=== PATIENT | female | born 1975 | race Caucasian/White ===

== ENCOUNTER 2016-08-06 12:45 | Emergency (ER) | payer SELFPAY ==
[2016-08-06] MEDS ORDERED: OXYCODONE-ACETAMINOPHEN 5-325 MG TABLET PO ONE (13:14)
--- NOTE | 2016-08-06 13:16 | ER Document Report ---
ED Medical Screen (RME) - General Stated Complaint: FALL ANKLE PAIN Time seen by provider: 13:11 Mode of Arrival: Wheelchair Information source: Patient Notes: I have greeted and performed a rapid initial assessment of this patient. A comprehensive ED assessment and evaluation of the patient, analysis of test results and completion of the medical decision making process will be conducted by additional ED providers. TRAVEL OUTSIDE OF THE [place] IN LAST 30 DAYS: No - HPI Patient complains to provider of: INJURY TO LEFT ANKLE Onset: This morning Onset/Duration: Sudden Context: PT STATES SHE FELL INJURING ANKLE Quality of pain: Throbbing Severity: Severe Pain Level: 5 Associated Symptoms: None Exacerbated by: Movement Relieved by: Denies Similar symptoms previously: No Recently seen / treated by doctor: No - Related Data Smoking: Non-smoker Frequency of alcohol use: None Drug Abuse: None Allergies/Adverse Reactions: sulfamethoxazole [From Septra DS] Allergy (Intermediate, Verified 08/06/16 13:12 ) trimethoprim [From Septra DS] Allergy (Intermediate, Verified 08/06/16 13:12) Past Medical History Renal/ Medical History: Reports: Hx Kidney Stones Psychiatric Medical History: Reports: Hx Depression Past Surgical History: Reports: Hx Appendectomy, Hx Tonsillectomy - Immunizations Hx Diphtheria, Pertussis, Tetanus Vaccination: No
--- NOTE | 2016-08-06 15:32 | ER Document Report ---
ED General - General Chief Complaint: Ankle Injury Stated Complaint: FALL ANKLE PAIN Mode of Arrival: Wheelchair Information source: Patient Notes: Patient is a 40 yo female who presents with right ankle pain and swelling after she tripped over her dog at home and fell on her ankle. Describes the pain as throbbing and rated at a 5 out of 5. Denies head injury or LOC. State she has been unable to bear weight on that ankle. She was given percocet here in triage which is providing minimal relief. Otherwise feeling well. TRAVEL OUTSIDE OF THE [place] IN LAST 30 DAYS: No - Related Data Allergies/Adverse Reactions: sulfamethoxazole [From Septra DS] Allergy (Intermediate, Verified 08/06/16 13:12 ) trimethoprim [From Septra DS] Allergy (Intermediate, Verified 08/06/16 13:12) Past Medical History - General Information source: Patient - Social History Smoking Status: Current Every Day Smoker Chew tobacco use (# tins/day): No Frequency of alcohol use: None Drug Abuse: None Family History: Reviewed & Not Pertinent Patient has suicidal ideation: No Patient has homicidal ideation: No Renal/ Medical History: Reports: Hx Kidney Stones. Denies: Hx Peritoneal Dialysis Psychiatric Medical History: Reports: Hx Depression Past Surgical History: Reports: Hx Appendectomy, Hx Tonsillectomy - Immunizations Hx Diphtheria, Pertussis, Tetanus Vaccination: No Review of Systems - Review of Systems Constitutional: See HPI EENT: No symptoms reported Cardiovascular: No symptoms reported Respiratory: No symptoms reported Gastrointestinal: No symptoms reported Genitourinary: No symptoms reported Female Genitourinary: No symptoms reported Musculoskeletal: See HPI Skin: No symptoms reported Hematologic/Lymphatic: No symptoms reported Neurological/Psychological: No symptoms reported Physical Exam - Vital signs Vitals: Temp Pulse Resp BP Pulse Ox 98.1 F 91 16 118/77 99 08/06/16 13:13 08/06/16 13:13 08/06/16 13:13 08/06/16 13:13 08/06/16 13:13 Interpretation: Normal - Notes Notes: PHYSICAL EXAM: CONSTITUTIONAL: Alert and oriented, well-appearing and in no acute distress. Appears uncomfortable. HENT: Normocephalic, atraumatic. Moist mucous membranes. EYES: Pupils equal round and reactive to light, EOM intact. Sclera anicteric, conjunctiva are normal. No entrapment. HEART: Regular rate and rhythm without murmurs. LUNGS: CTAB and equal. No wheezes, rales or rhonchi. EXTREMITIES: Left ankle - tender to palpation along distal fibula and lateral malleolus with obvious effusion to same area. No palpable deformities. Distal pulses intact. ROM limited of ankle secondary to pain and swelling. Otherwise Normal range of motion, no pitting edema. No cyanosis. Cap Refill <3 seconds. NEURO: Cranial nerves grossly intact. Normal sensory/motor exams. PSYCH: Normal mood, normal affect. SKIN: Warm and dry. Normal turgor. No rashes or lesions noted. Course - Re-evaluation Re-evalutation: 08/06/16 15:28 Patient seen and examined. Left ankle effusion noted without obvious deformity. Reviewed xray - spiral fracture noted to distal fibula nondisplaced with joint effusion. Discussed case and consulted with Dr. Lees, ortho on-call who agreed with posterior OCL splint, pain medication and outpatient follow-up. Discussed with patient who verbally agrees. PCT applied posterior splint, neurovascular intact post splint. Given crutches. Discharged home in stable condition with script for pain medication. Follow-up as directed. - Vital Signs Vital signs: Temp Pulse Resp BP Pulse Ox 98.1 F 91 16 118/77 99 08/06/16 13:13 08/06/16 13:13 08/06/16 13:13 08/06/16 13:13 08/06/16 13:13 Procedures - Immobilization Left Posterior Ankle Pre-Proc Neuro Vasc Exam: Normal Immobilizer type: Short Leg Posterior Performed by: PCT Post-Proc Neuro Vasc Exam: Normal Alignment checked and good: Yes Discharge - Discharge Clinical Impression: Effusion of ankle joint, left Spiral fracture of shaft of fibula Qualifiers: Encounter type: initial encounter Fracture type: closed Fracture alignment: nondisplaced Laterality: left Qualified Code(s): S82.445A - Nondisplaced spiral fracture of shaft of left fibula, initial encounter for closed fracture Condition: Stable Disposition: HOME, SELF-CARE Additional Instructions: Fracture You have a fracture. The typical broken bone requires only protection and sufficient time for healing. "Setting" is necessary only if the bones are crooked or out of position. The physician will re-assess you periodically to make certain that the bone heals without complications. It's important that you follow the instructions given you. The initial treatment is immobilization, elevation of the injury, and cold packs. Not all fractures require a cast. Depending on the location and type of fracture, immobilization may consist of a splint, cast, sling, bulky dressing , or simply rest. The length of time required for healing depends on the location and type of fracture, and on the age of the patient. The treatment plan the physician has outlined for you is customized to your fracture and health condition. Call the doctor or return at once if pain becomes severe, or if severe swelling or numbness develop. Oral Narcotic Medication You have been given a prescription for pain control. This medication is a narcotic. It's best taken with food, as nausea can result if taken on an empty stomach. Don't operate machinery or drive within six hours of taking this medication. Do not combine this medicine with alcohol, or with any medication which can cause sedation (such as cold tablets or sleeping pills) unless you get permission from the physician. Narcotics tend to cause constipation. If possible, drink plenty of fluids and eat a diet high in fiber and fruits. Splint Pending Casting Your injury can't be casted until the swelling has subsided. Therefore, a temporary splint has been placed to protect the injury. Full use of an injured area is not possible in a splint. You should follow the doctor's instructions concerning rest, ice, and elevation of the injury. Never do anything which causes pain under the splint. Keep the splint on ALL THE TIME until you return for casting. If there is unexpected severe pain, or numbness, discoloration, or swelling beyond the splint, you should return at once. Follow-Up Care Although no definite follow-up visit has been scheduled for you, you should return if there is unexpected worsening or a significant change in your symptoms. Prescriptions: Oxycodone HCl [Oxycodone HCl 10 MG Tablet] 1 - 2 tab PO Q6H PRN #15 tablet PRN Reason: PAIN Referrals: KAMILA HANSON MD [ACTIVE STAFF] - Follow up tomorrow (Call today for follow-up appointment)
[2016-08-06 16:36] VITALS: BP 144/86
== END 2016-08-06 16:35 | disposition home or self-care (01) ==
LOC: ER 12:45
PROC: 2W3RX1Z Immobilization of Left Lower Leg using Splint (ICD-10-PCS; principal; 2016-08-06)
DX: S82.445A Nondisplaced spiral fracture of shaft of left fibula, initial encounter for closed fracture (principal); W01.0XXA Fall on same level from slipping, tripping and stumbling without subsequent striking against object, initial encounter; Y92.009 Unspecified place in unspecified non-institutional (private) residence as the place of occurrence of the external cause; F17.200 Nicotine dependence, unspecified, uncomplicated; Z88.1 Allergy status to other antibiotic agents
CPT/HCPCS: 99283

== ENCOUNTER 2016-08-29 06:46 | Inpatient (IN) | payer SELFPAY ==
[2016-08-29 08:23] LABS: ABSOLUTE BASOPHILS # (AUTO) 0.1 10^3/uL (0.0-0.2); ABSOLUTE EOSINOPHILS # (AUTO) 0.2 10^3/uL (0.0-0.6); ABSOLUTE LYMPHOCYTES (AUTO) 2.2 10^3/uL (0.5-4.7); ABSOLUTE NEUT (AUTO) 12.7 10^3/uL (1.7-8.2); BASOPHILS % (AUTO) 0.4 % (0-2); EOSINOPHILS % (AUTO) 1.2 % (0-6); HEMATOCRIT 32.9 % (36.0-47.0); HEMOGLOBIN 11.3 g/dL (12.0-15.5); LYMPHOCYTES % (AUTO) 13.5 % (13-45); MEAN CORPUSCULAR HEMOGLOBIN 31.6 pg (27.0-33.4); MEAN CORPUSCULAR HGB CONC 34.3 g/dL (32.0-36.0); MEAN CORPUSCULAR VOLUME 92 fl (80-97); MONOCYTES % (AUTO) 6.4 % (3-13); RED BLOOD COUNT 3.58 10^6/uL (3.72-5.28); RED CELL DISTRIBUTION WIDTH 12.4 % (11.5-14.0); SEGMENTED NEUTROPHILS % (AUTO) 78.5 % (42-78); WHITE BLOOD COUNT 16.1 10^3/uL (4.0-10.5)
[2016-08-29 08:41] LABS: ALANINE AMINOTRANSFERASE 21 U/L (9-52); ALBUMIN 4.3 g/dL (3.5-5.0); ALKALINE PHOSPHATASE 62 U/L (38-126); ANION GAP 11 (5-19); ASPARTATE AMINO TRANSFERASE 19 U/L (14-36); BILIRUBIN,DIRECT 0.1 mg/dL (0.0-0.4); BILIRUBIN,TOTAL 0.9 mg/dL (0.2-1.3); BLOOD UREA NITROGEN 15 mg/dL (7-20); CALCIUM 9.7 mg/dL (8.4-10.2); CARBON DIOXIDE 25 mmol/L (22-30); CHLORIDE 105 mmol/L (98-107); CREATININE RESULT 0.74 mg/dL (0.52-1.25); GLUCOSE 85 mg/dL (75-110); LIPASE 61.9 U/L (23-300); POTASSIUM 4.4 mmol/L (3.6-5.0); SODIUM 140.9 mmol/L (137-145); TOTAL PROTEIN 7.1 g/dL (6.3-8.2)
--- NOTE | 2016-08-29 08:56 | ER Document Report ---
ED GI/ - General Chief Complaint: Abdominal Pain Stated Complaint: ABDOMINAL PAIN Time seen by provider: 08:56 Mode of Arrival: Ambulatory Information source: Patient Notes: 41-year-old female complaining of midline abdominal pain that started yesterday afternoon. She first started hurting in her back from her thoracic to her lumbar back, with some nausea and one episode of dry heaving. She put heat on it she thought maybe it was cramping from impending menses. No vaginal discharge. Normal bowel movement yesterday. LMP 3 weeks ago. She is unable to lay flat at this time to examine her abdomen sugars up and gets on all fours and cries saying please help me. Vital signs are stable she is afebrile. Appendectomy at age 18. Labs have already been resulted her white count is 16, 000 with a shift. test is negative. Chemistry is negative. Recent tibial fracture with cast left lower leg TRAVEL OUTSIDE OF THE [place] IN LAST 30 DAYS: No - Related Data Allergies/Adverse Reactions: sulfamethoxazole [From Septra DS] Allergy (Intermediate, Verified 08/29/16 06:51 ) trimethoprim [From Septra DS] Allergy (Intermediate, Verified 08/29/16 06:51) Past Medical History - General Information source: Patient - Social History Smoking Status: Current Every Day Smoker Frequency of alcohol use: Occasional Drug Abuse: None Lives with: Spouse/Significant other Family History: Reviewed & Not Pertinent Patient has suicidal ideation: No Patient has homicidal ideation: No Renal/ Medical History: Reports: Hx Kidney Stones. Denies: Hx Peritoneal Dialysis Psychiatric Medical History: Reports: Hx Depression Past Surgical History: Reports: Hx Appendectomy, Hx Tonsillectomy - Immunizations Hx Diphtheria, Pertussis, Tetanus Vaccination: No Review of Systems - Review of Systems Constitutional: No symptoms reported EENT: No symptoms reported Cardiovascular: No symptoms reported Respiratory: No symptoms reported Gastrointestinal: See HPI Genitourinary: No symptoms reported Female Genitourinary: No symptoms reported Musculoskeletal: See HPI Skin: No symptoms reported Hematologic/Lymphatic: No symptoms reported Neurological/Psychological: No symptoms reported Physical Exam - Vital signs Vitals: Temp Pulse Resp BP Pulse Ox 98.6 F 80 20 106/50 L 100 08/29/16 06:53 08/29/16 06:53 08/29/16 06:53 08/29/16 06:53 08/29/16 06:53 Interpretation: Normal Notes: Pale - General General appearance: Alert, Anxious Notes: Thin, looks dehydrated - HEENT Head: Normocephalic, Atraumatic Eyes: Normal Pupils: PERRL Mouth/Lips: Normal Mucous membranes: Dry Neck: Supple. No: Lymphadenopathy - Respiratory Respiratory status: No respiratory distress Chest status: Nontender Breath sounds: Normal Chest palpation: Normal - Cardiovascular Rhythm: Regular Heart sounds: Normal auscultation Murmur: No - Abdominal Inspection: Normal Distension: No distension Bowel sounds: Normal Tenderness: Nontender Organomegaly: No organomegaly - Back Back: Normal, Nontender. No: CVA tenderness - Extremities General upper extremity: Normal inspection, Nontender, Normal color, Normal ROM , Normal temperature General lower extremity: Normal inspection, Nontender, Normal color, Normal ROM , Normal temperature, Normal weight bearing. No: Madi's sign - Neurological Neuro grossly intact: Yes Cognition: Normal Orientation: AAOx4 Rockwell Coma Scale Eye Opening: Spontaneous Rockwell Coma Scale Verbal: Oriented Rockwell Coma Scale Motor: Obeys Commands Meggan Coma Scale Total: 15 Speech: Normal Motor strength normal: LUE, RUE, LLE, RLE Sensory: Normal - Psychological Associated symptoms: Normal affect, Normal mood - Skin Skin Temperature: Warm Skin Moisture: Dry Skin Color: Normal Skin irregularity: negative: Rash Course - Re-evaluation Re-evalutation: 08/29/16 09:24 After morphine 10 mg IV twice a day outpatient to lay flat and started the abdominal pain but she reared up because of right sided thoracic back pain that radiates to her right lumbar area. Still unable to get an abdominal exam. 08/29/16 11:23 when reclined again for the abd exam, sharp spasm in right thoracic back causing her to rear up, was guarding LLQ but unable to rest of the exam. More morphine ordered. 08/29/16 11:[address] matthews for whether need oral contrast for the CT 08/29/16 13:17 Ultrasound shows pyosalpinx on the left side ordered Rocephin, and azithromycin , Flagyl and I discussed this with the patient. We did not do any STD testing but her one sexual partner 16 years has no symptoms and she had no vaginal discharge. 08/29/16 15:31 Urine drug screen is positive for opiates and benzodiazepines that I did give her but also positive for cocaine. 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 No PE 08/29/16 15:32 ct chest negative, no pE, CT abdomen hemopeitoneum, 4cm left ovarian mass that is srupture, moderate ascites. page to dr. flores. who will come see the pt. admit to add antoher cbc, pt, ptt, type and screen she will come admit the pt. 08/29/16 16:34 - Vital Signs Vital signs: Temp Pulse Resp BP Pulse Ox 97.9 F 91 20 130/84 H 96 08/29/16 15:54 08/29/16 15:54 08/29/16 15:54 08/29/16 15:54 08/29/16 15:54 - Laboratory Result Diagrams: 08/29/16 08:11 08/29/16 08:11 Laboratory results interpreted by me: 08/29/16 08/29/16 08/29/16 08:11 08:11 11:35 WBC 16.1 H RBC 3.58 L Hgb 11.3 L Hct 32.9 L Seg Neutrophils % 78.5 H Absolute Neutrophils 12.7 H D-Dimer 0.51 H Urine Protein 30 H Ur Leukocyte Esterase TRACE H Discharge - Discharge Clinical Impression: Hemoperitoneum, ruptured ovarian mass Condition: Stable Disposition: ADMITTED INPATIENT Admitting Provider: [facility]
[2016-08-29] MEDS ORDERED: NORMAL SALINE 1000 ML 1,000 ML IV ONE ×3 (09:04→16:27)
[2016-08-29] MEDS ORDERED: ONDANSETRON HCL INJ/PF 4 MG/2 ML SDV IV ONE ×2 (09:05→20:23)
[2016-08-29] MEDS ORDERED: MORPHINE SULFATE 10 MG/ML INJ IV ONE ×2 (09:05→11:20)
[2016-08-29] MEDS ORDERED: DIAZEPAM INJ 10 MG/2 ML DISP.SYRIN IV ONE (09:25)
[2016-08-29] MEDS ORDERED: KETOROLAC TROMETHAMINE INJ/PF 30 MG/1 ML SDV IV ONE (09:25)
[2016-08-29 12:01] LABS: APPEARANCE,URINE SLIGHTLY-CLOUDY; BILIRUBIN,URINE NEGATIVE (NEGATIVE); GLUCOSE, URINE NEGATIVE (NEGATIVE); KETONES,URINE NEGATIVE (NEGATIVE); LEUKOCYTE ESTERASE,URINE TRACE (NEGATIVE); NITRITE,URINE NEGATIVE (NEGATIVE); PROTEIN,URINE 30 mg/dL (NEGATIVE); URINE SPECIFIC GRAVITY 1.013; UROBILINOGEN,URINE NEGATIVE mg/dL (<2.0)
[2016-08-29 12:27] LABS: URINE BARBITURATES SCREEN NEGATIVE; URINE METHADONE SCREEN NEGATIVE; URINE OPIATES LOW UNCONFIRMED POSITIVE; URINE PHENCYCLIDINE SCREEN NEGATIVE
[2016-08-29] MEDS ORDERED: HYDROMORPHONE HCL INJ/PF 2 MG/ML AMPULE IV ONE ×2 (12:57→14:40)
[2016-08-29] MEDS ORDERED: CEFTRIAXONE 1 GM/D5W RTU 50 ML IV ONE (13:11)
[2016-08-29] MEDS ORDERED: AZITHROMYCIN 250 MG TABLET PO ONE (13:12)
[2016-08-29] MEDS ORDERED: METRONIDAZOLE 500 MG/NS RTU 100 ML IV ONE (13:12)
[2016-08-29] MEDS ORDERED: LORAZEPAM INJ 2 MG/1 ML VIAL IV ONE (14:40)
[2016-08-29 15:32] LABS: CHLAM PCR NOT DETECTED (NOT DETECT)
[2016-08-29 17:07] LABS: ABSOLUTE EOSINOPHILS # (AUTO) 0.2 10^3/uL (0.0-0.6); ABSOLUTE LYMPHOCYTES (AUTO) 3.2 10^3/uL (0.5-4.7); ABSOLUTE MONOCYTES (AUTO) 1.4 10^3/uL (0.1-1.4); ABSOLUTE NEUT (AUTO) 10.6 10^3/uL (1.7-8.2); BASOPHILS % (AUTO) 0.3 % (0-2); EOSINOPHILS % (AUTO) 1.2 % (0-6); HEMATOCRIT 30.1 % (36.0-47.0); HEMOGLOBIN 9.9 g/dL (12.0-15.5); HGB HCT DIFFERENCE -0.4; LYMPHOCYTES % (AUTO) 20.7 % (13-45); MEAN CORPUSCULAR HEMOGLOBIN 30.8 pg (27.0-33.4); MEAN CORPUSCULAR VOLUME 94 fl (80-97); MONOCYTES % (AUTO) 8.9 % (3-13); RED BLOOD COUNT 3.21 10^6/uL (3.72-5.28); RED CELL DISTRIBUTION WIDTH 12.7 % (11.5-14.0); SEGMENTED NEUTROPHILS % (AUTO) 68.9 % (42-78); WHITE BLOOD COUNT 15.3 10^3/uL (4.0-10.5)
[2016-08-29 17:36] LABS: PROTHROMBIN TIME 13.8 SEC (11.4-15.4)
[2016-08-29 17:37] LABS: PARTIAL THROMBOPLASTIN TIME 29.6 SEC (23.5-35.8)
--- NOTE | 2016-08-29 17:56 | PDOC H&P ---
History of Present Illness Admission Date/PCP: 08/29/16 16:46 ALEXSANDER REEDER MD Patient complains of: Lower abd pain and back pain and Right shoulder pain. History of Present Illness: BRODY PETERSON is a 41 year old female ( 1998 uncomplicated at 40wks). H/o SAB x 2 and h/o ETOP x 2. She reports that she was using ( small amount of) cocaine with friends the other day and that is why her Drug screen was positive. She reports last pm she began to have lower pelvic pain and back pain. She presented to the ER for evaluation and CT and Pelvic US done. She had a Left lower leg fracture and has a cast currently - reports that she is supposed to use crutches but has not been. She is not currently taking any other medications. She denies n/v. She reports 7/10 pain but falls asleep multiple times during exam and interview. Past Medical History LMP: 08/10/2016 Gynecological Infection: No Cardiac Medical History: Reports: Other - recent Left fibula fracture Pulmonary Medical History: Reports: None Neurological Medical History: Reports: None Endocrine Medical History: Reports: None Renal/ Medical History: Reports: None Malignancy Medical History: Reports: None GI Medical History: Reports: None Musculoskeltal Medical History: Reports: None Skin Medical History: Reports: None Psychiatric Medical History: Reports: Depression, Substance Abuse Traumatic Medical History: Reports: None Infectious Medical History: Reports: None Past Surgical History Past Surgical History: Reports: Appendectomy, Tonsillectomy, Other - ETOP x 2 Social History Information Source: Patient Lives with: Spouse/Significant other Smoking Status: Current Every Day Smoker Hx Recreational Drug Use: Yes Drugs: Cocaine, Marijuana, Other - crack, denies Meth Hx Prescription Drug Abuse: No - Advance Directive Resuscitation Status: Full Code Family History Family History: Reviewed & Not Pertinent Parental Family History Reviewed: No Children Family History Reviewed: NA Sibling(s) Family History Reviewed.: NA Medication/Allergy Home Medications: No Home Medications 08/29/16 Allergies/Adverse Reactions: sulfamethoxazole [From Septra DS] Allergy (Intermediate, Verified 08/29/16 06:51 ) trimethoprim [From Septra DS] Allergy (Intermediate, Verified 08/29/16 06:51) Review of Systems Constitutional: ABSENT: chills, fever(s), headache(s), weight gain, weight loss Cardiovascular: ABSENT: chest pain, dyspnea on exertion, edema, orthropnea, palpitations Respiratory: ABSENT: cough, hemoptysis Gastrointestinal: ABSENT: abdominal pain, constipation, diarrhea, hematemesis, hematochezia, nausea, vomiting Musculoskeletal: PRESENT: back pain Neurological: PRESENT: other - s/p IV pain meds and pt is sleepy and fell asleep several times during interview. Psychiatric: ABSENT: anxiety, depression, homidical ideation, suicidal ideation Endocrine: ABSENT: cold intolerance, heat intolerance, polydipsia, polyuria Hematologic/Lymphatic: ABSENT: easy bleeding, easy bruising Physical Exam - Physical Exam Vital Signs: Temp Pulse Resp BP Pulse Ox 97.9 F 91 20 130/84 H 96 08/29/16 15:54 08/29/16 15:54 08/29/16 15:54 08/29/16 15:54 08/29/16 15:54 General appearance: PRESENT: no acute distress, well-developed, well-nourished Head exam: PRESENT: atraumatic, normocephalic Respiratory exam: PRESENT: clear to auscultation yeison, symmetrical, unlabored Cardiovascular exam: PRESENT: RRR, +S1, +S2 GI/Abdominal exam: PRESENT: guarding, normal bowel sounds - tenderness throughout abdomen. pt reports ttp over back, soft, tenderness - throughout abd. No flank or CVAT, no rebound or Rovsig but pt has had a lot of pain meds, other. ABSENT: rebound Rectal exam: PRESENT: deferred Extremities exam: PRESENT: full ROM, other - Left leg in cast. ABSENT: calf tenderness, clubbing, pedal edema Musculoskeletal exam: PRESENT: ambulatory Neurological exam: PRESENT: alert, altered - due to pain meds, oriented to person, oriented to place, oriented to time, oriented to situation, CN II-XII grossly intact. ABSENT: motor sensory deficit Psychiatric exam: PRESENT: appropriate affect, normal mood. ABSENT: homicidal ideation, suicidal ideation Skin exam: PRESENT: dry, intact, warm. ABSENT: cyanosis, rash Result Impressions: Chest X-Ray 08/29/16 09:37 IMPRESSION: NO SIGNIFICANT RADIOGRAPHIC FINDING IN THE CHEST. Chest/Abdomen CTA 08/29/16 11:21 IMPRESSION: 1. No pulmonary emboli. 2. No consolidation or effusions. 3. Perihepatic fluid. Etiology of this is uncertain. Abdomen/Pelvis CT 08/29/16 11:31 IMPRESSION: 1. Moderate amount of ascites which appears to represent hemoperitoneum probably secondary to 4.5 cm ruptured hemorrhagic left ovarian cyst although other hemorrhagic adnexal lesions cannot be excluded. Transvaginal US 08/29/16 11:46 IMPRESSION: Left pyosalpinx. Status: Image reviewed by me Assessment & Plan - Diagnosis (1) Hemorrhagic ovarian cyst Is this a current diagnosis for this admission?: YesPlan: Per US reports pyosalpinx. However cyst with moderate hemoperitoneum noted. Pt is hemodynamically stable at this time. Slight hb/Hct decrease after multiple liters of IVF in the ER. Will admit pt and continue to monitor for serial abd exams and for Hb/Hct approx every 6-8 hours. If becomes hemodynamically unstable will proceed to the OR. However at this time she is stable and will manage conservatively. 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 monitor and serial labs/exams. may need surgical intervention if decompensates or if needed for pain control tomorrow.
[2016-08-29] MEDS: HYDROMORPHONE HCL INJ/PF 2 MG/ML AMPULE IV PRN ×2 (19:16→23:26)
[2016-08-29 23:53] LABS: ABSOLUTE EOSINOPHILS # (AUTO) 0.1 10^3/uL (0.0-0.6); ABSOLUTE LYMPHOCYTES (AUTO) 1.9 10^3/uL (0.5-4.7); ABSOLUTE MONOCYTES (AUTO) 0.8 10^3/uL (0.1-1.4); ABSOLUTE NEUT (AUTO) 8.5 10^3/uL (1.7-8.2); BASOPHILS % (AUTO) 0.4 % (0-2); EOSINOPHILS % (AUTO) 0.7 % (0-6); HEMATOCRIT 25.8 % (36.0-47.0); HEMOGLOBIN 8.7 g/dL (12.0-15.5); HGB HCT DIFFERENCE 0.3; LYMPHOCYTES % (AUTO) 16.5 % (13-45); MEAN CORPUSCULAR HEMOGLOBIN 31.6 pg (27.0-33.4); MEAN CORPUSCULAR HGB CONC 33.8 g/dL (32.0-36.0); MEAN CORPUSCULAR VOLUME 93 fl (80-97); MONOCYTES % (AUTO) 7.1 % (3-13); RED BLOOD COUNT 2.76 10^6/uL (3.72-5.28); RED CELL DISTRIBUTION WIDTH 12.5 % (11.5-14.0); SEGMENTED NEUTROPHILS % (AUTO) 75.3 % (42-78); WHITE BLOOD COUNT 11.3 10^3/uL (4.0-10.5)
[2016-08-30] MEDS ORDERED: HYDROMORPHONE HCL INJ/PF 2 MG/ML AMPULE IV ONE (03:00)
--- NOTE | 2016-08-30 03:05 | PDOC PROGRESS REPORT ---
Subjective Progress Note for:: 08/30/16 Subjective:: Pt is in shower upon arrival for evaluation. She ambulated easily from the shower to the bed. however she continues to report pain out of porportion to her VS and to her status. She reports pain is the same as when evaluated in the ER and pain meds are helping when she gets them. She denies n/v/f/c. Physical Exam - Physical Exam Vital Signs: Temp Pulse Resp BP Pulse Ox 97.7 F 85 20 122/84 97 08/30/16 01:23 08/30/16 01:23 08/30/16 01:23 08/30/16 01:23 08/30/16 01:23 Intake & Output 08/28/16 08/29/16 08/30/16 06:59 06:59 06:59 Weight 49.9 kg General appearance: PRESENT: no acute distress, cooperative, thin, well- developed, well-nourished Head exam: PRESENT: atraumatic, normocephalic GI/Abdominal exam: PRESENT: guarding, normal bowel sounds, soft, tenderness, other - No rovsigs, no rebound, no peritoneal signs. Pain in abdomen refers to shoulder with lying down. abdominal ttp diffuse in lower abdomen below umbilicus which is unchanged.. ABSENT: distended, mass, rebound Rectal exam: PRESENT: deferred Extremities exam: PRESENT: full ROM. ABSENT: calf tenderness, clubbing, pedal edema Neurological exam: PRESENT: alert, awake, oriented to person, oriented to place , oriented to time, oriented to situation, CN II-XII grossly intact. ABSENT: motor sensory deficit Psychiatric exam: PRESENT: appropriate affect, normal mood. ABSENT: homicidal ideation, suicidal ideation Result Laboratory Results: 08/29/16 23:37 08/29/16 23:37 WBC 11.3 H RBC 2.76 L Hgb 8.7 L Hct 25.8 L MCV 93 MCH 31.6 MCHC 33.8 RDW 12.5 Plt Count 191 Seg Neutrophils % 75.3 Lymphocytes % 16.5 Monocytes % 7.1 Eosinophils % 0.7 Basophils % 0.4 Absolute Neutrophils 8.5 H Absolute Lymphocytes 1.9 Absolute Monocytes 0.8 Absolute Eosinophils 0.1 Absolute Basophils 0.0 Impressions: Chest X-Ray 08/29/16 09:37 IMPRESSION: NO SIGNIFICANT RADIOGRAPHIC FINDING IN THE CHEST. Chest/Abdomen CTA 08/29/16 11:21 IMPRESSION: 1. No pulmonary emboli. 2. No consolidation or effusions. 3. Perihepatic fluid. Etiology of this is uncertain. Abdomen/Pelvis CT 08/29/16 11:31 IMPRESSION: 1. Moderate amount of ascites which appears to represent hemoperitoneum probably secondary to 4.5 cm ruptured hemorrhagic left ovarian cyst although other hemorrhagic adnexal lesions cannot be excluded. Transvaginal US 08/29/16 11:46 IMPRESSION: Left pyosalpinx. Status: Image reviewed by me Assessment & Plan - Diagnosis (1) Hemorrhagic ovarian cyst Is this a current diagnosis for this admission?: YesPlan: Per US reports pyosalpinx - rec'd Doxy, Flagyl, Rocephin, Azithromycin in ER. However cyst 4.5cm with moderate hemoperitoneum noted on CT scan. Pt is appears hemodynamically stable at this time with normal VS and exam unchanged except for decrease in Hb/Hct (decrease in all values - possibly dilutional). VS are unchanged - HR in 80 (was 104 when pt in pain but given IV meds and now normalized) and normotensive. No e/o emergent need for surgery at this time as VS are completely wnl for her and stable. However due to decrease (possibly an equilibration) of hb/Hct will give transfusion. She was consented for such. Will give one unit then Repeat labs at 0700. T&S which was ordered at 1630 but still not done will be converted to T&C. If needed will give 2nd unit in OR. If VS or patient pain profile changes to reveal hemodynamic instability and emergent need for surgical intervention will proceed to OR tonight. However, for now will tranfuse and plan for L/S evaluation and removal of hemoperitoneum and cyst in am. 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
[2016-08-30] MEDS: ONDANSETRON HCL INJ/PF 4 MG/2 ML SDV IV PRN ×2 (03:15→12:12)
[2016-08-30 03:35] LABS: ABSOLUTE BASOPHILS # (AUTO) 0.1 10^3/uL (0.0-0.2); ABSOLUTE EOSINOPHILS # (AUTO) 0.1 10^3/uL (0.0-0.6); ABSOLUTE LYMPHOCYTES (AUTO) 2.1 10^3/uL (0.5-4.7); ABSOLUTE MONOCYTES (AUTO) 1.1 10^3/uL (0.1-1.4); BASOPHILS % (AUTO) 0.4 % (0-2); EOSINOPHILS % (AUTO) 0.9 % (0-6); HEMATOCRIT 26.6 % (36.0-47.0); HGB HCT DIFFERENCE 0.4; LYMPHOCYTES % (AUTO) 17.1 % (13-45); MEAN CORPUSCULAR HEMOGLOBIN 31.5 pg (27.0-33.4); MEAN CORPUSCULAR HGB CONC 33.9 g/dL (32.0-36.0); MEAN CORPUSCULAR VOLUME 93 fl (80-97); MONOCYTES % (AUTO) 9.2 % (3-13); RED BLOOD COUNT 2.87 10^6/uL (3.72-5.28); RED CELL DISTRIBUTION WIDTH 12.4 % (11.5-14.0); SEGMENTED NEUTROPHILS % (AUTO) 72.4 % (42-78); WHITE BLOOD COUNT 12.5 10^3/uL (4.0-10.5)
[2016-08-30] MEDS: HYDROMORPHONE HCL INJ/PF 2 MG/ML AMPULE IV PRN (12:04)
[2016-08-30] MEDS ORDERED: OXYCODONE-ACETAMINOPHEN 5-325 MG TABLET PO PRN (13:52)
[2016-08-30] MEDS ORDERED: ONDANSETRON HCL INJ/PF 4 MG/2 ML SDV IV PRN (13:55)
--- NOTE | 2016-08-30 15:01 | PDOC PROGRESS REPORT ---
Subjective Progress Note for:: 08/30/16 Subjective:: Pt hungry. Adequate pain control on iv meds. Ambulating and not dizzy or lightheaded. Physical Exam - Physical Exam Vital Signs: Temp Pulse Resp BP Pulse Ox 99.2 F 75 16 94/52 L 97 08/30/16 11:36 08/30/16 11:36 08/30/16 11:36 08/30/16 11:36 08/30/16 11:36 Intake & Output 08/29/16 08/30/16 08/31/16 06:59 06:59 06:59 Intake Total 0 300 Output Total 700 Balance -700 300 Weight 49.9 kg General appearance: PRESENT: no acute distress GI/Abdominal exam: PRESENT: soft, other Extremities exam: PRESENT: other - no calf tenderness or edema Result Laboratory Results: 08/30/16 03:25 08/29/16 08/30/16 23:37 03:25 WBC 11.3 H 12.5 H RBC 2.76 L 2.87 L Hgb 8.7 L 9.0 L Hct 25.8 L 26.6 L MCV 93 93 MCH 31.6 31.5 MCHC 33.8 33.9 RDW 12.5 12.4 Plt Count 191 211 Seg Neutrophils % 75.3 72.4 Lymphocytes % 16.5 17.1 Monocytes % 7.1 9.2 Eosinophils % 0.7 0.9 Basophils % 0.4 0.4 Absolute Neutrophils 8.5 H 9.0 H Absolute Lymphocytes 1.9 2.1 Absolute Monocytes 0.8 1.1 Absolute Eosinophils 0.1 0.1 Absolute Basophils 0.0 0.1 Impressions: Chest X-Ray 08/29/16 09:37 IMPRESSION: NO SIGNIFICANT RADIOGRAPHIC FINDING IN THE CHEST. Chest/Abdomen CTA 08/29/16 11:21 IMPRESSION: 1. No pulmonary emboli. 2. No consolidation or effusions. 3. Perihepatic fluid. Etiology of this is uncertain. Abdomen/Pelvis CT 08/29/16 11:31 IMPRESSION: 1. Moderate amount of ascites which appears to represent hemoperitoneum probably secondary to 4.5 cm ruptured hemorrhagic left ovarian cyst although other hemorrhagic adnexal lesions cannot be excluded. Transvaginal US 08/29/16 11:46 IMPRESSION: Left pyosalpinx. Assessment & Plan - Diagnosis (1) Hemoperitoneum Is this a current diagnosis for this admission?: YesPlan: currently hemodynamically stable and adequate pain control ...will allow regular diet and change to oral pain meds. Plan cbc tomorrow am. (2) Hemorrhagic ovarian cyst Is this a current diagnosis for this admission?: YesPlan: Pt desires depo provera before discharge for contraception and cyst suppression in future (3) Anemia Qualifiers: Anemia type: unspecified type Qualified Code(s): D64.9 - Anemia, unspecified
[2016-08-30] MEDS: OXYCODONE-ACETAMINOPHEN 5-325 MG TABLET PO PRN ×2 (15:44→22:24)
[2016-08-30] MEDS: PROMETHAZINE HCL 25 MG TABLET PO PRN ×2 (15:47→22:24)
[2016-08-30 16:32] LABS: CHLAM PCR NOT DETECTED (NOT DETECT)
[2016-08-30] MEDS ORDERED: SENNOSIDES/DOCUSATE 8.6-50 MG 1 EACH TABLET PO SCH (20:00)
[2016-08-31] MEDS: PROMETHAZINE HCL 25 MG TABLET PO PRN (04:13)
[2016-08-31] MEDS: OXYCODONE-ACETAMINOPHEN 5-325 MG TABLET PO PRN ×2 (04:13→10:19)
[2016-08-31 06:57] LABS: HEMATOCRIT 27.3 % (36.0-47.0); HEMOGLOBIN 9.4 g/dL (12.0-15.5); HGB HCT DIFFERENCE 0.9; MEAN CORPUSCULAR HEMOGLOBIN 31.3 pg (27.0-33.4); MEAN CORPUSCULAR HGB CONC 34.5 g/dL (32.0-36.0); MEAN CORPUSCULAR VOLUME 91 fl (80-97); RED BLOOD COUNT 3.01 10^6/uL (3.72-5.28); RED CELL DISTRIBUTION WIDTH 13.5 % (11.5-14.0); WHITE BLOOD COUNT 9.1 10^3/uL (4.0-10.5)
[2016-08-31] MEDS ORDERED: MEDROXYPROGESTERONE ACET INJ 150 MG/1 ML VIAL IM ONE (09:25)
--- NOTE | 2016-08-31 09:35 | PDOC DISCHARGE SUMMARY ---
General - Admit/Disc Date/PCP Admission Date/Primary Care Provider: 08/29/16 17:57 ALEXSANDER REEDER MD Discharge Date: 08/31/16 - Discharge Diagnosis (1) Hemorrhagic ovarian cyst Is this a current diagnosis for this admission?: Yes (2) Anemia associated with acute blood loss Is this a current diagnosis for this admission?: Yes - Additional Information Resuscitation Status: Full Code Home Medications: No Home Medications 08/29/16 History of Present Illness History of Present Illness: BRODY PETERSON is a 41 year old female who presented with pelvic pain, nausea Hospital Course Hospital Course: Patient presented with pelvic pain and nausea. ultrasound showed possible Tubular structure with hemoperitoneum. CT abdomen shows 4cm left hemorrhagic cyst. Initially hemoglobin decreased and patient received one unit PRBC transfusion and hemaglobin then remained stable. Clinically patient was doing very well. She remained afebrile and tolerated po intake. She had good control of pain with percocet which we will give her when she leaves. She also received Depoprovera 150mg IM for contraception Physical Exam - Physical Exam Vital Signs: Temp Pulse Resp BP Pulse Ox 98.2 F 91 16 96/60 L 100 08/31/16 07:53 08/31/16 07:53 08/31/16 07:53 08/31/16 07:53 08/31/16 07:53 Intake & Output 08/30/16 08/31/16 09/01/16 06:59 06:59 06:59 Intake Total 0 750 Output Total 700 1525 Balance -700 -775 Weight 49.9 kg Result Laboratory Results: 08/31/16 06:33 08/31/16 06:33 WBC 9.1 RBC 3.01 L Hgb 9.4 L Hct 27.3 L MCV 91 MCH 31.3 MCHC 34.5 RDW 13.5 Plt Count 157 Impressions: Chest X-Ray 08/29/16 09:37 IMPRESSION: NO SIGNIFICANT RADIOGRAPHIC FINDING IN THE CHEST. Chest/Abdomen CTA 08/29/16 11:21 IMPRESSION: 1. No pulmonary emboli. 2. No consolidation or effusions. 3. Perihepatic fluid. Etiology of this is uncertain. Abdomen/Pelvis CT 08/29/16 11:31 IMPRESSION: 1. Moderate amount of ascites which appears to represent hemoperitoneum probably secondary to 4.5 cm ruptured hemorrhagic left ovarian cyst although other hemorrhagic adnexal lesions cannot be excluded. Transvaginal US 08/29/16 11:46 IMPRESSION: Left pyosalpinx. Plan Discharge Plan: home with follow up office in 2 weeks for repeat ultrasound Time Spent: Less than 30 Minutes
[2016-08-31 11:00] VITALS: BP 106/71
== END 2016-08-31 12:40 | disposition home or self-care (01) | DRG 760 ==
LOC: ER 06:46 → UNDOADMIN 16:46 → EH 16:46 → 2N 23:06
PROVIDERS: ADMIT Student in an Organized Health Care Education/Training Program; ATTEND Student in an Organized Health Care Education/Training Program
PROC: 30233N1 Transfusion of Nonautologous Red Blood Cells into Peripheral Vein, Percutaneous Approach (ICD-10-PCS; principal; 2016-08-30)
DX: N83.202 Unspecified ovarian cyst, left side (principal); K66.1 Hemoperitoneum; D62 Acute posthemorrhagic anemia; F14.10 Cocaine abuse, uncomplicated; F32.9 Major depressive disorder, single episode, unspecified; F17.200 Nicotine dependence, unspecified, uncomplicated; F12.90 Cannabis use, unspecified, uncomplicated; Z90.49 Acquired absence of other specified parts of digestive tract; Z88.2 Allergy status to sulfonamides; Z88.8 Allergy status to other drugs, medicaments and biological substances; S82.402D Unspecified fracture of shaft of left fibula, subsequent encounter for closed fracture with routine healing; X58.XXXD Exposure to other specified factors, subsequent encounter
CPT/HCPCS: 36415; 36430; 71020; 71275; 74177; 76830; 80053; 80307; 81001; 83690; 84702; 85025; 85027; 85379; 85610; 85730; 86850; 86900; 86901; 86920; 87040; 87491; 87591; 93976; 96361; 96365; 96367; 96375; 96376; 99285; J0696; J1050; J1170; J1885; J2060; J2270; J2405; J3360; J7030; P9016

== ENCOUNTER 2019-05-05 00:13 | Inpatient (IN) | payer SELFPAY ==
[2019-05-05] MEDS ORDERED: LIDOCAINE 1% INJ-PF (10 MG/ML) 30 ML SDV ONE (00:21)
[2019-05-05] MEDS ORDERED: MISOPROSTOL 0.2 MG TABLET ONE (00:21)
[2019-05-05] MEDS ORDERED: OXYTOCIN/NORMAL SALINE 20 UNIT/1,000 ML RTUINJ ONE (00:21)
[2019-05-05] MEDS ORDERED: OXYTOCIN 10 UNIT/ML VIAL ONE (00:21)
[2019-05-05] MEDS ORDERED: RINGERS SOLUTION,LACTATED 1,000 ML IV PRN (00:30)
[2019-05-05] MEDS ORDERED: RINGERS SOLUTION,LACTATED 1,000 ML IV ONE (00:30)
--- NOTE | 2019-05-05 00:53 | Admission Physical ---
Datetime Report Generated by CPN: 05/05/2019 00:53 CURRENT ADMISSION Chief Complaint: Uterine Contractions Indication for Induction: Not Applicable Admit Impression : Term, Intrauterine ; Active Labor; Ruptured Membranes Admit Plan: Admit to Unit; Initiate Labor Protocol ALLERGIES Medication Allergies: sulfamethoxazole/MO (08/29/2016); trimethoprim/MO (08/29/2016) PHYSICAL EXAM General: Normal HEENT: Normal Neurologic: Normal Thyroid: Normal Heart: Normal Lungs: Normal Breast: Normal Back: Normal Abdomen: Normal Genitourinary Exam: Normal Extremities: Normal DTRs: Normal Pelvic Type: Adequate Vital Signs: Reviewed; Within Normal Limits VAGINAL EXAM Dilatation: 8 Effacement: 100 Station: -2 Contraction Comments: q 2 MEMBRANES Membranes: Ruptured Amniotic Fluid Color: Clear FETUS A Monitoring: External US FHR- Baseline: 120s Variability: Moderate 6-25bpm Accelerations: 15X15 FHR Category: Category I Admit Comment: This 43 yo presented to the ED via ambulance, c/o contractions, had SROM in the ambulance. Pt 8 cm and was transferred to L_D. No care. Pt admits to cocaine use approx 2-3 days ago. INFORMED CONSENT Signature: with User ID: [email or web address]
[2019-05-05] MEDS ORDERED: BENZOCAINE/MENTHOL AEROSOL SPRAY 56 ML TOP PRN (00:54)
[2019-05-05] MEDS ORDERED: OXYTOCIN/NORMAL SALINE 20 UNIT/1,000 ML RTUINJ IV PRN (00:54)
[2019-05-05] MEDS ORDERED: DIPH/PERTUSS(ACELL)/TETANUS VAC/PF 0.5 ML SYR (>=10YO) IM PRN (00:54)
[2019-05-05] MEDS ORDERED: MEASLES,MUMPS&RUBELLA VACC/PF 0.5 ML VIAL SUBCUT PRN (00:54)
[2019-05-05] MEDS ORDERED: DIBUCAINE 1% OINTMENT 56 GM TP PRN (00:54)
[2019-05-05] MEDS ORDERED: ZOLPIDEM TARTRATE 5 MG TABLET PO PRN (00:54)
[2019-05-05 01:02] LABS: ABSOLUTE EOSINOPHILS # (AUTO) 0.1 10^3/uL (0.0-0.6); ABSOLUTE LYMPHOCYTES (AUTO) 1.6 10^3/uL (0.5-4.7); ABSOLUTE MONOCYTES (AUTO) 1.5 10^3/uL (0.1-1.4); ABSOLUTE NEUT (AUTO) 14.2 10^3/uL (1.7-8.2); BASOPHILS % (AUTO) 0.2 % (0-2); EOSINOPHILS % (AUTO) 0.7 % (0-6); HEMATOCRIT 31.1 % (36.0-47.0); HEMOGLOBIN 10.4 g/dL (12.0-15.5); MEAN CORPUSCULAR HEMOGLOBIN 29.2 pg (27.0-33.4); MEAN CORPUSCULAR HGB CONC 33.4 g/dL (32.0-36.0); MEAN CORPUSCULAR VOLUME 87 fl (80-97); MONOCYTES % (AUTO) 8.6 % (3-13); PLATELET COUNT 271 10^3/uL (150-450); RED BLOOD COUNT 3.56 10^6/uL (3.72-5.28); RED CELL DISTRIBUTION WIDTH 14.2 % (11.5-14.0); SEGMENTED NEUTROPHILS % (AUTO) 81.5 % (42-78); TOTAL CELLS COUNTED % (AUTO) 100 %; WHITE BLOOD COUNT 17.4 10^3/uL (4.0-10.5)
[2019-05-05] MEDS ORDERED: IBUPROFEN 800 MG TABLET ONE (01:17)
--- NOTE | 2019-05-05 01:55 | Warning Signs in Babies ---
VOD Warning Signs Datetime Report Generated by [facility]: 05/05/2019 01:55 VOD#608 -Warning Signs in Babies: Viewed with Parent(s)/Family (05/05/2019 00:45:Gerda Story RN)
[2019-05-05 02:09] LABS: APPEARANCE,URINE CLEAR; BILIRUBIN,URINE NEGATIVE (NEGATIVE); COLOR,URINE YELLOW; GLUCOSE, URINE NEGATIVE (NEGATIVE); KETONES,URINE NEGATIVE (NEGATIVE); LEUKOCYTE ESTERASE,URINE NEGATIVE (NEGATIVE); NITRITE,URINE NEGATIVE (NEGATIVE); PROTEIN,URINE NEGATIVE (NEGATIVE); URINE SPECIFIC GRAVITY 1.005; UROBILINOGEN,URINE NEGATIVE mg/dL (<2.0)
--- NOTE | 2019-05-05 02:13 | Delivery Summary ---
Del Sum A-C Datetime Report Generated by CPN: 05/05/2019 02:13 DELIVERY PERSONNEL DELIVERY PERSONNEL: [id number] Delivery Doctor:: Krystal Nagel MD Labor and Delivery Nurse:: Gerda Story RNcar dispatcher Nurse:: Kenyetta Redding RNC Nursery Nurse:: Leti Simon RN Interventional Technologist/DRAFTER ENGINEERING: Ashley Ross, ST MATERNAL INFORMATION Delivery Anesthesia: None Medications After Delivery: Pitocin Bolus-Please Comment; Pitocin Drip 20 Units/1000ml NSS; Cytotec 1000mcg Per Rectum/Vagina Meds After Delivery Comment: Pitocin 20 units in 1000 mL NS Delivery QBL: 50 Delivery QBL Comment: 50 ml Maternal Complications: Precipitous Labor (<3hrs) Provider Comments: Precipitous of a viable female w/ an ROBBIE w/nuchal cord x 1 presentation at 0034; APGARS 9, 9; 1st deg midline lac LABOR SUMMARY No. Babies in Womb: 1 Attempted: No Labor Anesthesia: None LABOR INFORMATION Reason for Induction: Not Applicable Onset of Labor: 05/04/2019 18:00 Complete Dilatation: 05/05/2019 00:30 Oxytocin: N/A Group B Beta Strep: unknown Antibiotics # of Doses: 0 Steroids Given: None Reason Steroids Not Administered: Not Applicable MEMBRANES Membranes Rupture Method: Spontaneous Rupture of Membranes: 05/05/2019 12:20 Length of Rupture (hr): -11.77 Amniotic Fluid Color: Clear Amniotic Fluid Amount: Small Amniotic Fluid Odor: Normal STAGES OF LABOR Stage 1 hr: 6 Stage 1 min: 30 Stage 2 hr: 0 Stage 2 min: 4 Stage 3 hr: 0 Stage 3 min: 3 Total Time in Labor hr: 6 Total Time in Labor min: 37 VAGINAL DELIVERY Episiotomy: None Laceration #1: Vaginal Laceration Extension #1: First Degree Laceration Repair: Yes Laceration Repair Note: 1st degree midline vaginal lac repaired w/3-0 chromic Sponge Count Correct: Yes Sharps Count Correct: Yes CSECTION DELIVERY Primary Indication: N/A Secondary Indication: N/A CSection Incidence: N/A Labor: N/A Elective: N/A CSection Incision: N/A BABY A INFORMATION Delivery Date/Time: 05/05/2019 00:34 Method of Delivery: Vaginal Born in Route : No : N/A Forceps: N/A Vacuum Extraction: N/A Shoulder Dystocia : No PRESENTATION/POSITION BABY A Presentation: Cephalic Cephalic Presentation: Vertex Vertex Position: Right Occipital Anterior Breech Presentation: N/A PLACENTA INFORMATION BABY A Placenta Delivery Time : 05/05/2019 00:37 Placenta Method of Delivery: Spontaneous Placenta Status: Delivered SCORES BABY A Heart Rate 1 min: >100 bpm Resp Effort 1 min: Good Cry Reflex Irritability 1 min: Cough or Sneeze or Pulls Away Muscle Tone 1 min: Active Motion Color 1 min: Body Coleman, Extremities Blue Resuscitation Effort 1 min: Tactile Stimulation SCORE 1 MIN: 9 Heart Rate 5 min: >100 bpm Resp Effort 5 min: Good Cry Reflex Irritability 5 min: Cough or Sneeze or Pulls Away Muscle Tone 5 min: Active Motion Color 5 min: Body Coleman, Extremities Blue SCORE 5 MIN: 9 INFORMATION BABY A Outcome : Liveborn Condition : Stable Sex: Female IDENTIFICATION BABY A Verification Date/Time: 05/05/2019 00:43 ID Band Number: [id number] Mother's Name Verified: Yes RN Verifying : J.Field, RN and E.Jilek, RN WEIGHT/LENGTH BABY A Infant Birthweight (gm): 2705 Weight (lb): 5 Infant Weight (oz): 15 Length (in): 17.75 Infant Length (cm): 45.09 CORD INFORMATION BABY A No. Cord Vessels: 3 Nuchal Cord : Around Neck x1, Loose Cord Blood Taken: Yes-For Storage (Mom's Blood type +) Infant Suction: None ASSESSMENT BABY A Skin to Skin: Yes Skin to Skin Time (min): 45 BABY B INFORMATION : N/A SIGNATURES Signature: with User ID: [email or web address]
[2019-05-05] MEDS ORDERED: ACETAMINOPHEN WITH CODEINE #3 TABLET ONE (02:38)
[2019-05-05] MEDS: ACETAMINOPHEN WITH CODEINE #3 TABLET PO PRN ×3 (02:44→17:45)
[2019-05-05 03:02] LABS: URINE AMPHETAMINES SCREEN NEGATIVE; URINE BARBITURATES SCREEN NEGATIVE; URINE BENZODIAZEPINES SCREEN NEGATIVE; URINE MARIJUANA (THC) SCREEN NEGATIVE; URINE METHADONE SCREEN NEGATIVE; URINE PHENCYCLIDINE SCREEN NEGATIVE
[2019-05-05] MEDS ORDERED: INFLUENZA QUAD (6MOS+) 2019-20 VAC 0.5 ML SYR IM ONE (03:42)
[2019-05-05 03:47] LABS: URINE COCAINE SCREEN UNCONFIRMED POSITIVE
[2019-05-05] MEDS: IBUPROFEN 800 MG TABLET PO SCH ×3 (05:21→22:27)
[2019-05-05 06:06] LABS: CHLAM PCR NOT DETECTED (NOT DETECT)
[2019-05-05] MEDS: SENNOSIDES/DOCUSATE 8.6-50 MG 1 EACH TABLET PO SCH (09:31)
[2019-05-05] MEDS: PRENATAL VITAMIN W DHA CAPSULE PO SCH (09:31)
[2019-05-05] MEDS: DOCUSATE SODIUM 100 MG CAPSULE PO SCH ×2 (09:31→17:49)
[2019-05-05] MEDS: FERROUS SULFATE 325 MG TABLET PO SCH ×2 (09:31→17:44)
--- NOTE | 2019-05-05 09:32 | PDOC PROGRESS REPORT ---
Subjective-OB Progress Note for:: 05/05/19 Subjective: pt shaking feet on rounds, states she is cold, OOB to BR, no c/o, baby in nursery Physical Exam (OB) Vital Signs: Temp Pulse Resp BP Pulse Ox 98.7 F 94 16 134/74 H 99 05/05/19 08:08 05/05/19 08:08 05/05/19 08:08 05/05/19 08:08 05/05/19 08:08 - Lochia Lochia Amount: Small 10-25 ml Lochia Color: Rubra/Red - Abdomen Description: Soft Hernia Present: No Fundal Description: Firm, Midline Fundal Height: u/u - u/2 Objective-Diagnostic Laboratory: 05/05/19 00:26 05/05/19 05/05/19 05/05/19 00:26 00:26 01:45 WBC 17.4 H RBC 3.56 L Hgb 10.4 L Hct 31.1 L MCV 87 MCH 29.2 MCHC 33.4 RDW 14.2 H Plt Count 271 Seg Neutrophils % 81.5 H Urine Color YELLOW Urine Appearance CLEAR Urine pH 8.0 Ur Specific [place] 1.005 Urine Protein NEGATIVE Urine Glucose (UA) NEGATIVE Urine Ketones NEGATIVE Urine Blood LARGE H Urine Nitrite NEGATIVE Ur Leukocyte Esterase NEGATIVE Blood Type O POSITIVE Antibody Screen NEGATIVE Assessment and Plan(PN) - Assessment and Plan (1) Marijuana abuse Is this a current diagnosis for this admission?: Yes (2) Cocaine abuse complicating Qualifiers: Trimester: unspecified trimester Qualified Code(s): O99.320 - Drug use co mplicating , unspecified trimester; F14.10 - Cocaine abuse, uncomplicated Is this a current diagnosis for this admission?: Yes (3) No care in current Qualifiers: Trimester: third trimester Qualified Code(s): O09.33 - Supervision of with insufficient care, third trimester Is this a current diagnosis for this admission?: Yes (4) Vaginal delivery Is this a current diagnosis for this admission?: Yes - Time Spent with Patient Time with patient: Less than 15 minutes Smoking Education Provided: Over 3 minutes Medications reviewed and adjusted accordingly: Yes - Disposition Anticipated Discharge: Home Within: within 24 hours
[2019-05-06] MEDS: ACETAMINOPHEN WITH CODEINE #3 TABLET PO PRN ×3 (01:21→19:55)
[2019-05-06] MEDS: IBUPROFEN 800 MG TABLET PO SCH ×3 (05:54→21:45)
[2019-05-06 07:31] LABS: HEMATOCRIT 26.9 % (36.0-47.0); HEMOGLOBIN 8.9 g/dL (12.0-15.5); MEAN CORPUSCULAR HEMOGLOBIN 29.6 pg (27.0-33.4); MEAN CORPUSCULAR HGB CONC 33.1 g/dL (32.0-36.0); MEAN CORPUSCULAR VOLUME 89 fl (80-97); PLATELET COUNT 197 10^3/uL (150-450); RED BLOOD COUNT 3.01 10^6/uL (3.72-5.28); WHITE BLOOD COUNT 11.9 10^3/uL (4.0-10.5)
[2019-05-06 07:37] LABS: HEPATITIS C VIRUS AB <0.1 s/co ratio (0.0-0.9)
[2019-05-06] MEDS: FERROUS SULFATE 325 MG TABLET PO SCH ×2 (10:03→17:34)
[2019-05-06] MEDS: PRENATAL VITAMIN W DHA CAPSULE PO SCH (10:03)
[2019-05-06] MEDS: SENNOSIDES/DOCUSATE 8.6-50 MG 1 EACH TABLET PO SCH (10:04)
[2019-05-06] MEDS: DOCUSATE SODIUM 100 MG CAPSULE PO SCH ×2 (10:04→17:35)
--- NOTE | 2019-05-06 10:35 | PDOC PROGRESS REPORT ---
Subjective-OB Progress Note for:: 05/06/19 - PP Day #1, pt doing well, no complaints, no PNC this , bottlefeeding, has equipment planner in place, Hx cocaine use Physical Exam (OB) Vital Signs: Temp Pulse Resp BP Pulse Ox 97.5 F 68 16 117/79 100 05/06/19 07:24 05/06/19 07:24 05/06/19 07:24 05/06/19 07:24 05/06/19 07:24 Intake & Output 05/05/19 05/06/19 05/07/19 06:59 06:59 06:59 Intake Total 1480 Balance 1480 - General General Appearance: Appears well, Alert In distress: None - PIH/Pre-Eclampsia Headache: Absent Epigastric Pain: No Visual Changes: No - Lochia Lochia Amount: Scant < 10 ml Lochia Color: Rubra/Red - Abdomen Description: Soft Hernia Present: No Fundal Description: Firm, Midline Fundal Height: u/u - u/2 - Respiratory Respiratory Status: No respiratory distress - Abdominal Inspection: Normal Distension: No distension Tenderness: Nontender - Genitourinary Genitourinary Note: voiding - Extremities Upper extremity: Normal inspection Lower extremities: Normal inspection - Neurological Cognition: Normal Orientation: AAOx4 - Psychological Associated symptoms: Normal affect, Normal mood - Skin Skin Temperature: Warm Skin Moisture: Dry Objective-Diagnostic Laboratory: 05/06/19 07:07 05/06/19 07:07 WBC 11.9 H RBC 3.01 L Hgb 8.9 L Hct 26.9 L MCV 89 MCH 29.6 MCHC 33.1 RDW 14.0 Plt Count 197 Assessment and Plan(PN) - Assessment and Plan (1) Cocaine abuse complicating Qualifiers: Trimester: third trimester Qualified Code(s): O99.323 - Drug use complicating , third trimester; F14.10 - Cocaine abuse, uncomplicated Is this a current diagnosis for this admission?: Yes (2) Marijuana abuse Is this a current diagnosis for this admission?: Yes (3) No care in current Qualifiers: Trimester: third trimester Qualified Code(s): O09.33 - Supervision of with insufficient care, third trimester Is this a current diagnosis for this admission?: Yes (4) Vaginal delivery Is this a current diagnosis for this admission?: Yes (5) Anemia Qualifiers: Anemia type: iron deficiency Iron deficiency anemia type: unspecified iron deficiency Qualified Code(s): D50.9 - Iron deficiency anemia, unspecified Is this a current diagnosis for this admission?: Yes (6) Anemia associated with acute blood loss Is this a current diagnosis for this admission?: Yes Plan:: ambulation encouraged, Routine PP orders - Time Spent with Patient Smoking Education Provided: Over 3 minutes Medications reviewed and adjusted accordingly: Yes - Disposition Anticipated Discharge: Home Within: within 24 hours
[2019-05-07] MEDS: ACETAMINOPHEN WITH CODEINE #3 TABLET PO PRN ×2 (00:07→06:16)
[2019-05-07] MEDS: IBUPROFEN 800 MG TABLET PO SCH (06:15)
[2019-05-07 07:04] LABS: HEPATITS B SURFACE ANTIGEN Negative (Negative)
[2019-05-07 09:00] VITALS: BP 135/84
--- NOTE | 2019-05-07 09:25 | PDOC DISCHARGE SUMMARY ---
Impression - Admit/DC Date/PCP Admission Date/Primary Care Provider: 05/05/19 00:17 CHANTE REYES DO Discharge Date: 05/07/19 - PP Day#2, doing well, bottlefeeding, O+, Rubella Immune, labwork reviewed, all normal. Hx cocaine use this , no PNC. - Discharge Diagnosis (1) Cocaine abuse complicating Is this a current diagnosis for this admission?: Yes (2) Marijuana abuse Is this a current diagnosis for this admission?: Yes (3) No care in current Is this a current diagnosis for this admission?: Yes (4) Vaginal delivery Is this a current diagnosis for this admission?: Yes (5) Anemia Is this a current diagnosis for this admission?: Yes (6) Anemia associated with acute blood loss Is this a current diagnosis for this admission?: Yes - Additional Information Resuscitation Status: Full Code Discharge Diet: As Tolerated, Regular Discharge Activity: Activity As Tolerated, No Lifting Over 10 Pounds, Pelvic Rest Referrals: CHANTE AGUILA DO [Primary Care Provider] - Prescriptions: Ferrous Sulfate [Feosol 325 mg Tablet] 325 mg PO DAILY #30 tablet Ibuprofen [Motrin 800 mg Tablet] 800 mg PO Q8 #60 tablet Vit/Dha [ Multi + Dha Capsule] 1 cap PO DAILY #30 capsule Home Medications: Oxycodone HCl/Acetaminophen [Percocet 5-325 mg Tablet] 2 tab PO Q6HP PRN #30 tablet 08/31/16 Sennosides/Docusate 8.6-50 mg [Senna Plus Tablet] 1 each PO DAILY@1999 #0 tablet 08/31/16 Ferrous Sulfate [Feosol 325 mg Tablet] 325 mg PO DAILY #30 tablet 05/07/19 Ibuprofen [Motrin 800 mg Tablet] 800 mg PO Q8 #60 tablet 05/07/19 Vit/Dha [ Multi + Dha Capsule] 1 cap PO DAILY #30 capsule 05/07/19 HPI Reason(s) for Admission: Onset of Labor Procedures: None Intrapartum Procedure(s): Spontaneous Vaginal Delivery Complication(s): Laceration-Perineal Laceration-Degree: 1st Hospital Course Hospital Course: normal Results Laboratory Results: WBC 11.9 10^3/uL (4.0-10.5) H 05/06/19 07:07 RBC 3.01 10^6/uL (3.72-5.28) L 05/06/19 07:07 Hgb 8.9 g/dL (12.0-15.5) L 05/06/19 07:07 Hct 26.9 % (36.0-47.0) L 05/06/19 07:07 MCV 89 fl (80-97) 05/06/19 07:07 MCH 29.6 pg (27.0-33.4) 05/06/19 07:07 MCHC 33.1 g/dL (32.0-36.0) 05/06/19 07:07 RDW 14.0 % (11.5-14.0) 05/06/19 07:07 Plt Count 197 10^3/uL (150-450) 05/06/19 07:07 Lymph % (Auto) 9.0 % (13-45) L 05/05/19 00:26 [place] % (Auto) 8.6 % (3-13) 05/05/19 00:26 Eos % (Auto) 0.7 % (0-6) 05/05/19 00:26 Baso % (Auto) 0.2 % (0-2) 05/05/19 00:26 Absolute Neuts (auto) 14.2 10^3/uL (1.7-8.2) H 05/05/19 00:26 Absolute Lymphs (auto) 1.6 10^3/uL (0.5-4.7) 05/05/19 00:26 Absolute Monos (auto) 1.5 10^3/uL (0.1-1.4) H 05/05/19 00:26 Absolute Eos (auto) 0.1 10^3/uL (0.0-0.6) 05/05/19 00:26 Absolute Basos (auto) 0.0 10^3/uL (0.0-0.2) 05/05/19 00:26 Seg Neutrophils % 81.5 % (42-78) H 05/05/19 00:26 Urine Color YELLOW 05/05/19 01:45 Urine Appearance CLEAR 05/05/19 01:45 Urine pH 8.0 (5.0-9.0) 05/05/19 01:45 Ur Specific [place] 1.005 05/05/19 01:45 Urine Protein NEGATIVE mg/dL (NEGATIVE) 05/05/19 01:45 Urine Glucose (UA) NEGATIVE mg/dL (NEGATIVE) 05/05/19 01:45 Urine Ketones NEGATIVE mg/dL (NEGATIVE) 05/05/19 01:45 Urine Blood LARGE (NEGATIVE) H 05/05/19 01:45 Urine Nitrite NEGATIVE (NEGATIVE) 05/05/19 01:45 Urine Bilirubin NEGATIVE (NEGATIVE) 05/05/19 01:45 Urine Urobilinogen NEGATIVE mg/dL (<2.0) 05/05/19 01:45 Ur Leukocyte Esterase NEGATIVE (NEGATIVE) 05/05/19 01:45 Urine Ascorbic Acid NEGATIVE (NEGATIVE) 05/05/19 01:45 Urine Opiates Screen NEGATIVE 05/05/19 01:45 Urine Methadone Screen NEGATIVE 05/05/19 01:45 Ur Barbiturates Screen NEGATIVE 05/05/19 01:45 Ur Phencyclidine Scrn NEGATIVE 05/05/19 01:45 Ur Amphetamines Screen NEGATIVE 05/05/19 01:45 U Benzodiazepines Scrn NEGATIVE 05/05/19 01:45 Urine Cocaine Screen UNCONFIRMED POSITIVE 05/05/19 01:45 U Marijuana (THC) Screen NEGATIVE 05/05/19 01:45 RPR NONREACTIVE (NONREACTIVE) 05/05/19 00:26 Chlamydia DNA (PCR) NOT DETECTED (NOT DETECT) 05/05/19 04:20 Hep Bs Antigen Negative (Negative) 05/05/19 00:40 Hepatitis C (PAPO) <0.1 s/co ratio (0.0-0.9) 05/05/19 00:40 Hep C Verif Com 1 Comment (.) 05/05/19 00:40 HIV 1&2 Antibody NEGATIVE (NEGATIVE) 05/05/19 00:40 N.gonorrhoeae DNA (PCR) NOT DETECTED (NOT DETECT) 05/05/19 04:20 Rubella IgG Antibody 16.00 IU/mL 05/05/19 00:40 Rubella IgG Ab Interp POSITIVE 05/05/19 00:40 Blood Type O POSITIVE 05/05/19 00:26 Antibody Screen NEGATIVE 05/05/19 00:26 Plan Health Concerns: no care, Hx drug abuse Plan of Treatment: d/c to home, Pt to f[facility]u with [facility] or [facility] in 4-6 wks. 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
[2019-05-07] MEDS: SENNOSIDES/DOCUSATE 8.6-50 MG 1 EACH TABLET PO SCH (09:32)
[2019-05-07] MEDS: DOCUSATE SODIUM 100 MG CAPSULE PO SCH (09:32)
[2019-05-07] MEDS: PRENATAL VITAMIN W DHA CAPSULE PO SCH (09:34)
[2019-05-07] MEDS: FERROUS SULFATE 325 MG TABLET PO SCH (09:35)
== END 2019-05-07 12:34 | disposition home or self-care (01) | DRG 806 ==
LOC: ER 00:13 → LR 00:17 → 2S 02:58
PROVIDERS: ADMIT Obstetrics & Gynecology; ATTEND Obstetrics & Gynecology
PROC: 10E0XZZ Delivery of Products of Conception, External Approach (ICD-10-PCS; principal; 2019-05-05)
PROC: 0HQ9XZZ Repair Perineum Skin, External Approach (ICD-10-PCS; 2019-05-05)
PROC: 3E02340 Introduction of Influenza Vaccine into Muscle, Percutaneous Approach (ICD-10-PCS; 2019-05-07)
DX: O62.3 Precipitate labor (principal); O71.4 Obstetric high vaginal laceration alone; Z37.0 Single live birth; O99.324 Drug use complicating childbirth; F14.10 Cocaine abuse, uncomplicated; F12.10 Cannabis abuse, uncomplicated; D50.9 Iron deficiency anemia, unspecified; O69.81X0 Labor and delivery complicated by cord around neck, without compression, not applicable or unspecified; O99.02 Anemia complicating childbirth; Z3A.00 Weeks of gestation of pregnancy not specified; Z23 Encounter for immunization; Z88.3 Allergy status to other anti-infective agents; Z88.2 Allergy status to sulfonamides
CPT/HCPCS: 36415; 80307; 80353; 81005; 85025; 85027; 86592; 86701; 86762; 86803; 86804; 86850; 86900; 86901; 87340; 87491; 87591; 88307; 90686; 90715; G0480; J2590; J3490